=== PATIENT | male | born 1965 | race Caucasian/White ===

== ENCOUNTER 2018-12-07 19:35 | Observation (INO) ==
--- NOTE | 2018-12-07 19:45 | Emergency Department Note ---
Disposition Clinical Impression: Complicated UTI (urinary tract infection) Sepsis Qualifiers: Sepsis type: sepsis due to unspecified organism Qualified Code(s): A41.9 - Sepsis, unspecified organism Disposition: Admitted As Inpatient Condition: Fair Time of Disposition: 02:42 Fever HPI - General Stated Complaint: fever after surgery Time Seen by Provider: 12/07/18 19:44 Source: patient, family Mode of arrival: ambulatory Limitations: no limitations Nursing Notes Reviewed: Yes Vital Signs Reviewed: Yes - History of Present Illness HPI Narrative: 53-year-old male past medical history of diabetes with triple bypass performed at this facility 12 days ago recently released on Saturday states that he has been doing well at home with progression of his recuperation. Patient states that for the past 2 days that he has had dysuria with increased frequency dark colored urine, patient states that along with this he has noted fevers and chills with fevers up to 101.7, patient states that he has had some chest discomfort which has been associated with his cardiac bypass which has been improving each day since his surgery, patient denies any new or worsening symptoms. Patient denies abdominal pain nausea or vomiting, he denies dif ficulty with breathing but states he has noted decreased tidal volumes of respiration, patient has no new neck or back Pain numbness or paresthesias lightheaded dizziness or headache. Upon initial presentation H has midline surgical scar with laparotomy incisions consistent with triple bypass, wounds are healing well, there is no erythema regular date concerning for infection of the sites, patient is tachycardic however cardiac auscultation reveals no acute abnormalities, auscultation of the lungs do not reveal any abnormalities, patient abdomen is nontender nondistended, pulse motor are intact in the 4 extremities. Pt Subjective Complaint: fever, malaise, weakness, rigors Onset (ago): day(s) Maximum Temperature Reported: 101.7 F Temperature Source: oral Context: recent procedure/surgery Associated symptoms: Reports: chills, rigors, dyspnea, weight loss Improves with: nothing Worsens with: nothing Treatments prior to arrival fever: ibuprofen - Related Data Home Medications Medication Instructions Recorded Confirmed Dulaglutide [Trulicity] 0.75 mg SQ SA 08/23/17 12/07/18 Pioglitazone HCl [Actos] 30 mg PO DAILY 08/23/17 12/07/18 Pravastatin Sodium [Pravachol] 40 mg PO QPM 08/23/17 12/07/18 glipiZIDE [Glipizide ER] 10 mg PO BID 08/23/17 12/07/18 Aspirin [Lo-Dose Aspirin EC] 81 mg PO DAILY 05/15/18 12/07/18 Metformin HCl [Fortamet] 1,000 mg PO BID 11/25/18 12/07/18 Omeprazole Magnesium [Prilosec Otc] 20 mg PO DAILY 11/25/18 12/07/18 Oxycodone Myristate [Xtampza ER] 13.5 mg PO Q12H PRN 11/25/18 12/07/18 Previous Rx's Medication Instructions Recorded Metoprolol [Lopressor] 100 mg PO BID #60 tablet 12/01/18 Allergies Allergy/AdvReac Type Severity Reaction Status Date / Time Erythromycin Base Allergy Hives Verified 11/25/18 07:29 Penicillins [PCN] Allergy Hives Verified 11/25/18 07:29 Sulfa (Sulfonamide Allergy Hives Verified 11/25/18 07:29 Antibiotics) Review of Systems: *See History of Present Illness for more detail Constitutional: Admits: Chills. Denies: fever Cardiovascular: Denies: chest pain Respiratory: Admits to decreased tidal volumes respiration Denies: dyspnea, cough, hemoptysis Gastrointestinal: Denies: abdominal pain, nausea, vomiting, diarrhea, constipation, hematemesis, melena, hematochezia Genitourinary: Patient admits to increasing dysuria, frequency, discolored urine Denies: hematuria Musculoskeletal: Denies: back pain, neck pain Integumentary: Denies: rash Neurological: Admits: Weakness. Denies: headache, lightheadedness/dizziness, numbness, paresthesias, difficulty with ambulation. Endocrine: Admits: fatigue All systems ED: reviewed and negative except as stated. Review of Systems: As Per HPI Fever PMH - Past Medical History Medical history: Reports: non-contributory, diabetes, hyperlipidemia Surgical history: Reports: orthopedic, other Psychiatric history: Reports: no psych history - Social History Smoking Status: Current every day smoker Alcohol use: Reports: none Drug use: Reports: none Physical Exam Constitutional: No acute distress, [id number], engaged to conversation, speech is fluid, answers questions appropriately Neuro: GCS 15, no overt focal neurological deficits Head: Atraumatic, normocephalic Eyes: Pupils equal, round and reactive to light, no scleral icterus, no conjunctival injection Neck: Trachea midline without deviation. Anterior neck is supple without swelling. *Chest: Symmetric chest wall rise *Heart: Cardiac rhythm and rate are regular with S1 and S2 , no S3 or S4 appreciated, no murmurs, gallops, rubs, or clicks. *Lungs: Lungs are clear to auscultation bilaterally, without accessory muscle use or prolonged expiratory phase. No wheezes, rhonchi or stridor appreciated. Abdomen: Abdomen is flat, soft to palpation, normal bowel sounds. No abdominal bruit auscultated. Non-distended, non-rigid, no organomegaly, no ascites appreciated. No pulsatile mass, no tenderness or guarding to palpation in all four quadrants, no rebound Extremities: Normal capillary refill without evidence of pedal edema, joint swelling or erythema. Pulses/motor intact in all 4 extremities. Psychiatric exam: Patient displays a normal affect and mood for the environment. No overt signs of hallucination. Integumentary: warm, dry, intact, normal color. No rash, cyanosis, diaphoresis, erythema, or pallor - General Limitations: no limitations General appearance: alert, in no apparent distress Course Course Narrative: ED sepsis workup-likely source is UTI - Reevaluation(s) Reevaluation #1: Patient laboratory notable for elevated white count, UTI showed an urinalysis We will begin 1 g piggyback Rocephin at this time Patient with elevated troponin which is consistent with prior triple bypass. Otherwise unremarkable EKG, laboratory and imaging results. Time: 20:59 Vital Signs Temperature 100.0 F H 12/07/18 19:47 Pulse Rate 116 12/07/18 19:47 Respiratory Rate 22 12/07/18 19:47 Blood Pressure 111/77 12/07/18 19:47 O2 Sat by Pulse Oximetry 97 12/07/18 19:47 Temperature 98.9 F 12/07/18 23:18 Pulse Rate 104 12/07/18 23:20 Respiratory Rate 18 12/07/18 23:18 Blood Pressure 110/71 12/07/18 23:18 O2 Sat by Pulse Oximetry 97 12/07/18 23:18 Oxygen Delivery Oxygen Delivery Room Air Fever - MDM Narrative Medical decision making narrative: Patient will be admitted to hospitalist medicine service for further evaluation and management of urosepsis. We will trend troponin every 3 hour. Patient given 1 g Rocephin piggyback in ED for management of UTI. Patient states he has taken Rocephin before without issue states that he was told he had a penicillin allergy as a child and does not remember any adverse reaction. Patient verbalizes understanding and agreement with the above stated plan. - Lab Data Lab results reviewed: Yes I reviewed the patient's lab results. Result diagrams: 12/07/18 20:05 12/07/18 20:05 Lab Results 12/07/18 12/07/18 12/07/18 Range/Units 19:45 20:05 20:05 WBC 24.8 H (4.3-11.1) K/mcL RBC 3.25 L (4.19-5.50) M/mcL Hgb 10.5 L (12.9-16.9) g/dL Hct 32.6 L (37.5-50.1) % MCV 100.3 H (83.0-100.0) fL MCH 32.3 (28.0-33.3) pg MCHC 32.2 (31.6-35.5) g/dL RDW 12.5 (11.5-14.5) % Plt Count 513 H (140-400) K/mcL MPV 8.6 L (9.4-12.4) fL Immature Gran % 0.7 (0-4) % Seg Neutrophils % 82.3 % Lymphocytes % 9.9 % Monocytes % 5.7 % Eosinophils % 1.2 % Basophils % 0.2 % Neutrophils # 20.4 H (1.6-8.9) K/mcL Lymphocytes # 2.4 (0.6-4.6) K/mcL Monocytes # 1.4 H (0.0-1.3) K/mcL Eosinophils # 0.3 (0.0-0.6) K/mcL Basophils # 0.1 (0.0-0.2) K/mcL PT 13.0 H (9.4-12.1) Seconds INR 1.1 APTT 33.0 (26.0-36.0) Seconds Sodium (136-145) mEq/L Potassium (3.5-5.1) mEq/L Chloride (98-107) mEq/L Carbon Dioxide (23-29) mEq/L BUN (6-20) mg/dL Creatinine (0.70-1.30) mg/dL Est GFR ( Amer) (> 60) Est GFR (Non-Af Amer) (> 60) BUN/Creatinine Ratio (6-26) Glucose (70-105) mg/dL Calculated Osmolality (280-300) Lactic Acid (0.5-2.2) mmol/L Calcium (8.6-10.3) mg/dL Phosphorus (2.7-4.5) mg/dL Magnesium (1.6-2.6) mg/dL Total Bilirubin (0.3-1.0) mg/dL Direct Bilirubin (0.0-0.2) mg/dL Indirect Bilirubin (0.0-1.2) mg/dL AST (13-39) Units/L ALT (7-52) Units/L Alkaline Phosphatase (34-104) Units/L Troponin I (< 0.04) ng/mL Serum Total Protein (6.4-8.9) g/dL Albumin (3.5-5.7) g/dL Globulin (2.4-3.5) g/dL Albumin/Globulin Ratio (1.1-2.2) Lipase (11-82) Units/L Urine Color Yellow (Yellow) Urine Clarity Cloudy A (Clear) Urine pH 7.0 (5.0-8.0) pH Units Ur Specific [place] < 1.005 L (1.010-1.025) Urine Protein 30 H (Neg-Trace) mg/dL Urine Glucose (UA) Normal (Normal) mg/dL Urine Ketones Negative (Negative) mg/dL Urine Blood Small H (Negative) Urine Nitrite Positive A (Negative) Urine Bilirubin Negative (Negative) Urine Urobilinogen Normal (Normal) mg/dL Ur Leukocyte Esterase Large H (Negative) Urine Microscopic RBC 5-15 H (0-3) per hpf Urine Microscopic WBC TNTC H (0-3) per hpf Ur Squamous Epith Cells Moderate H (None-Few) per lpf Urine Bacteria Many H (None-Few) per hpf Hyaline Casts None Seen (None-Few) per lpf Ur Culture Indicated? YES A (NO) 12/07/18 12/07/18 Range/Units 20:05 20:05 WBC (4.3-11.1) K/mcL RBC (4.19-5.50) M/mcL Hgb (12.9-16.9) g/dL Hct (37.5-50.1) % MCV (83.0-100.0) fL MCH (28.0-33.3) pg MCHC (31.6-35.5) g/dL RDW (11.5-14.5) % Plt Count (140-400) K/mcL MPV (9.4-12.4) fL Immature Gran % (0-4) % Seg Neutrophils % % Lymphocytes % % Monocytes % % Eosinophils % % Basophils % % Neutrophils # (1.6-8.9) K/mcL Lymphocytes # (0.6-4.6) K/mcL Monocytes # (0.0-1.3) K/mcL Eosinophils # (0.0-0.6) K/mcL Basophils # (0.0-0.2) K/mcL PT (9.4-12.1) Seconds INR APTT (26.0-36.0) Seconds Sodium 135 L (136-145) mEq/L Potassium 4.1 (3.5-5.1) mEq/L Chloride 100 (98-107) mEq/L Carbon Dioxide 25 (23-29) mEq/L BUN 15 (6-20) mg/dL Creatinine 0.92 (0.70-1.30) mg/dL Est GFR ( Amer) > 60 (> 60) Est GFR (Non-Af Amer) > 60 (> 60) BUN/Creatinine Ratio 16 (6-26) Glucose 134 H (70-105) mg/dL Calculated Osmolality 283 (280-300) Lactic Acid 1.7 (0.5-2.2) mmol/L Calcium 9.7 (8.6-10.3) mg/dL Phosphorus 2.8 (2.7-4.5) mg/dL Magnesium 1.5 L (1.6-2.6) mg/dL Total Bilirubin 0.4 (0.3-1.0) mg/dL Direct Bilirubin 0.1 (0.0-0.2) mg/dL Indirect Bilirubin 0.3 (0.0-1.2) mg/dL AST 11 L (13-39) Units/L ALT 19 (7-52) Units/L Alkaline Phosphatase 76 (34-104) Units/L Troponin I 0.05 H* (< 0.04) ng/mL Serum Total Protein 7.1 (6.4-8.9) g/dL Albumin 4.2 (3.5-5.7) g/dL Globulin 2.9 (2.4-3.5) g/dL Albumin/Globulin Ratio 1.4 (1.1-2.2) Lipase 22 (11-82) Units/L Urine Color (Yellow) Urine Clarity (Clear) Urine pH (5.0-8.0) pH Units Ur Specific [place] (1.010-1.025) Urine Protein (Neg-Trace) mg/dL Urine Glucose (UA) (Normal) mg/dL Urine Ketones (Negative) mg/dL Urine Blood (Negative) Urine Nitrite (Negative) Urine Bilirubin (Negative) Urine Urobilinogen (Normal) mg/dL Ur Leukocyte Esterase (Negative) Urine Microscopic RBC (0-3) per hpf Urine Microscopic WBC (0-3) per hpf Ur Squamous Epith Cells (None-Few) per lpf Urine Bacteria (None-Few) per hpf Hyaline Casts (None-Few) per lpf Ur Culture Indicated? (NO) - Radiology Data Radiology results reviewed: Yes I reviewed the patient's radiology results. Chest X-Ray 12/07/18 19:58 IMPRESSION: Areas of atelectasis in both lungs. D/ / Jimmy Corado MD / Jimmy Corado MD Interpreting Provider: Jimmy Corado MD - EKG Data EKG attestation: Yes I reviewed and interpreted this EKG. EKG results narrative: Patient's EKG shows a sinus tachycardia with a computer evaluated heart rate of 118 bpm, ND interval of 138 ms, QRS duration of 1 ms, QT/QTc interval of 300/41 ms respectively. There are no significant ST segment elevations, depressions, pathologic Q waves, abnormal T-wave inversions are noted in lead aVL and V2 which appear isolated to these leads, this EKG that was performed today is generally consistent with prior EKG that was performed on 11/25/2018.
[2018-12-07 19:57] LABS: Bilirubin,Urine Negative (Negative); Blood,Urine Small (Negative); Clarity,Urine Cloudy (Clear); Color,Urine Yellow (Yellow); Glucose,Urine (UA) Normal (Normal); Ketones,Urine Negative (Negative); Leukocyte Esterase,Urine Large (Negative); Nitrite,Urine Positive (Negative); Protein,Urine 30 mg/dL (Neg-Trace); Specific Gravity,Urine < 1.005 (1.010-1.025); Urobilinogen,Urine Normal (Normal)
[2018-12-07 19:59] LABS: Bacteria,Urine Many per hpf (None-Few); Hyaline Casts,Urine None Seen per lpf (None-Few); Squamous Epithelial Cell,Urine Moderate per lpf (None-Few); WBC,Urine TNTC per hpf (0-3)
[2018-12-07] MEDS: 0.9 % Sodium Chloride 1,000 ML IVC SCH ×2 (20:10→20:12)
[2018-12-07 20:20] LABS: Basophils # 0.1 K/mcL (0.0-0.2); Basophils % 0.2 %; Eosinophils # 0.3 K/mcL (0.0-0.6); Eosinophils % 1.2 %; Hematocrit 32.6 % (37.5-50.1); Hemoglobin 10.5 g/dL (12.9-16.9); Immature Granulocytes % 0.7 % (0-4); Lymphocytes # 2.4 K/mcL (0.6-4.6); Lymphocytes % 9.9 %; Mean Corpuscular HGB Conc 32.2 g/dL (31.6-35.5); Mean Corpuscular Hemoglobin 32.3 pg (28.0-33.3); Mean Corpuscular Volume 100.3 fL (83.0-100.0); Mean Platelet Volume 8.6 fL (9.4-12.4); Monocytes # 1.4 K/mcL (0.0-1.3); Monocytes % 5.7 %; Neutrophils # 20.4 K/mcL (1.6-8.9); Platelet Count 513 K/mcL (140-400); Red Blood Count 3.25 M/mcL (4.19-5.50); Red Cell Distribution Width 12.5 % (11.5-14.5); Segmented Neutrophils % 82.3 %; White Blood Count 24.8 K/mcL (4.3-11.1)
[2018-12-07 20:29] LABS: INR 1.1
[2018-12-07 20:42] LABS: Alanine Aminotransferase 19 Units/L (7-52); Albumin 4.2 g/dL (3.5-5.7); Albumin/Globulin Ratio 1.4 (1.1-2.2); Alkaline Phosphatase 76 Units/L (34-104); Aspartate Amino Transferase 11 Units/L (13-39); Bilirubin,Direct 0.1 mg/dL (0.0-0.2); Bilirubin,Indirect 0.3 mg/dL (0.0-1.2); Bilirubin,Total 0.4 mg/dL (0.3-1.0); Blood Urea Nitrogen 15 mg/dL (6-20); Calcium 9.7 mg/dL (8.6-10.3); Carbon Dioxide 25 mEq/L (23-29); Chloride 100 mEq/L (98-107); Globulin 2.9 g/dL (2.4-3.5); Glucose 134 mg/dL (70-105); Lipase 22 Units/L (11-82); Magnesium 1.5 mg/dL (1.6-2.6); Osmolality,Calculated 283 (280-300); Phosphorous 2.8 mg/dL (2.7-4.5); Potassium 4.1 mEq/L (3.5-5.1); Sodium 135 mEq/L (136-145); Total Protein 7.1 g/dL (6.4-8.9)
[2018-12-07 20:45] LABS: Troponin I 0.05 ng/mL (< 0.04)
[2018-12-07] MEDS ORDERED: cefTRIAXone 1,000 MG in 0.9 % Sodium Chloride Mini Bag 100 ML IVPB ONE (20:57)
[2018-12-07 21:45] LABS: BUN/Creatinine Ratio 16 (6-26); eGFR For African Americans > 60 (> 60); eGFR For Non-African Americans > 60 (> 60)
[2018-12-07] MEDS ORDERED: Naloxone 0.4 MG/ML INJ IVP PRN (22:02)
[2018-12-07] MEDS ORDERED: Acetaminophen 325 MG TABLET PO PRN (22:02)
[2018-12-07] MEDS ORDERED: *HR* OxyCODONE/APAP 10/325 TABLET PO PRN (22:06)
[2018-12-07] MEDS ORDERED: OXYCODONE MYRISTATE 13.5 MG PO PRN (22:06)
--- NOTE | 2018-12-07 22:09 | Internal Med History&Physical ---
Date of Encounter: 12/07/18 Time of Encounter: 22:07 Internal Medicine - H&P: HPI Chief complaint: Dysuria History of present illness: Mr. Quintanilla is a 53 year old male with a past medical history of diabetes, hyperlipidemia, coronary artery disease status post recent CABG 12 days ago and recently discharged on Saturday who presented to the ED with a 2 day history of dy suria with increased frequency and dark colored urine. Patient patient reporting that he recently had his Lopez catheter removed. Patient has noted fevers of up to 101.7 as well as chills. On arrival found to be hemodynamically stable with a heart rate of 116. 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 Laboratory workup for a leukocytosis of 24.8, anemia which appears to be stable, and a troponin of 0.05. UA showing positive nitrites and leukocyte esterase. A she was given 1 L of fluids in the ED. Blood and urine cultures were obtained. Patient was started on ceftriaxone. We will admit for UTI with sepsis. Past Med Surg Social Fam HX - Past Medical History Medical history: diabetes, hyperlipidemia Additional medical history: lumbar stenosis. CAD Psychiatric history: no psych history - Past Surgical History Surgical History: orthopedic, other Additional surgical history: shoulder x2, wrist - Social History Smoking Status: Never smoker Smokeless Tobacco Status: No Alcohol use: none Drug use: none Internal Medicine - H&P: Meds Dulaglutide [Trulicity] 0.75 mg SQ SA 08/23/17 [History] Pioglitazone HCl [Actos] 30 mg PO DAILY 08/23/17 [History] Pravastatin Sodium [Pravachol] 40 mg PO QPM 08/23/17 [History] glipiZIDE [Glipizide ER] 10 mg PO BID 08/23/17 [History] Aspirin [Lo-Dose Aspirin EC] 81 mg PO DAILY 05/15/18 [History] Metformin HCl [Fortamet] 1,000 mg PO BID 11/25/18 [History] Omeprazole Magnesium [Prilosec Otc] 20 mg PO DAILY 11/25/18 [History] Oxycodone Myristate [Xtampza ER] 13.5 mg PO Q12H PRN 11/25/18 [History] Metoprolol [Lopressor] 100 mg PO BID #60 tablet 12/01/18 [Rx] Allergy/AdvReac Type Severity Reaction Status Date / Time Erythromycin Base Allergy Hives Verified 11/25/18 07:29 Penicillins [PCN] Allergy Hives Verified 11/25/18 07:29 Sulfa (Sulfonamide Allergy Hives Verified 11/25/18 07:29 Antibiotics) All Systems PM: A 10-system review of systems was performed and is negative for pertinent findings except as documented above in the HPI. - Constitutional Constitutional: no chills, no fever(s), no night sweats - EENT Eyes: no change in vision, no discharge, no pain, no photophobia Ears: no ear discharge, no ear pain, no tinnitus Nose, mouth and throat: no dysphagia, no nasal discharge, no neck pain, no sore throat - Cardiovascular Cardiovascular ROS IM: no chest pain, no diaphoresis, no dyspnea, no lightheadedness, no palpitations, no syncope - Respiratory Respiratory: no cough, no dyspnea, no wheezing, no excessive phlegm production - Gastrointestinal Gastrointestinal: no abdominal pain, no diarrhea, no hematemesis, no hematochezia, no melena, no nausea, no vomiting - Musculoskeletal Musculoskeletal ROS IM: no numbness, no tingling - Integumentary Integumentary IM: no rash, no unusual bruising - Neurological Neurological ROS: no confusion, no convulsions, no focal weakness, no numbness, no tingling, no tremor(s) - Hematologic/Lymphatic Hematologic/Lymphatic: no easy bruising - Constitutional Vitals: Temp Pulse Resp BP Pulse Ox 100.0 F H 105 16 117/72 100 12/07/18 19:47 12/07/18 20:32 12/07/18 20:32 12/07/18 20:32 12/07/18 20:32 Exam: General: Alert and oriented Skin:Normal color, no rash, no lesions. HEENT:EOM, pupils equal, round and reactive. Cardiovascular:Normal S1 & S2, no rubs, murmurs or gallops. No JVD. Pulse regular. Lungs:Normal breath sounds, no wheezes or crackles. Abdomen:Soft, non-tender, no rigidity. Extremities:No deformity, no edema or tenderness, no joint swelling or clubbing. Neurological:Normal cognition and motor skills. Pulses:Carotid and radial pulses normal +2. Rest of the physical exam is non contributory Internal Med - H&P Results - Labs CBC & Chem 7: 12/08/18 04:02 12/08/18 04:02 Labs: Short CBC 12/07/18 Range/Units 20:05 WBC 24.8 H (4.3-11.1) K/mcL Hgb 10.5 L (12.9-16.9) g/dL Hct 32.6 L (37.5-50.1) % Plt Count 513 H (140-400) K/mcL Neutrophils # 20.4 H (1.6-8.9) K/mcL BMP 12/07/18 20:05 Sodium 135 L Potassium 4.1 Chloride 100 Carbon Dioxide 25 BUN 15 Creatinine 0.92 Glucose 134 H Calcium 9.7 Cardiac Enzymes 12/07/18 Range/Units 20:05 Troponin I 0.05 H* (< 0.04) ng/mL Liver Function 12/07/18 Range/Units 20:05 Total Bilirubin 0.4 (0.3-1.0) mg/dL Direct Bilirubin 0.1 (0.0-0.2) mg/dL AST 11 L (13-39) Units/L ALT 19 (7-52) Units/L Alkaline Phosphatase 76 (34-104) Units/L Albumin 4.2 (3.5-5.7) g/dL Urine 12/07/18 Range/Units 19:45 Urine Color Yellow (Yellow) Urine Clarity Cloudy A (Clear) Urine pH 7.0 (5.0-8.0) pH Units Ur Specific [place] < 1.005 L (1.010-1.025) Urine Protein 30 H (Neg-Trace) mg/dL Urine Glucose (UA) Normal (Normal) mg/dL - Impressions ITS Impressions Chest X-Ray 12/07/18 19:58 IMPRESSION: Areas of atelectasis in both lungs. D/ / Jimmy Corado MD / Jimmy Corado MD Interpreting Provider: Jimmy Corado MD - Assessment and Plan (1) Complicated UTI (urinary tract infection) Current Visit: Yes Status: Acute Assessment and plan: Patient presenting with symptoms of increased frequency, dysuria and dark colored urine for the past 2 days. Patient recently discharged earlier this week. During hospitalization had Lopez catheter in place which was removed prior to discharge. UA strongly suggestive of UTI. Patient has evidence of sepsis with fever, tachycardia and leukocytosis. -Continue antibiotics with IV ceftriaxone -Follow up urine and blood cultures (2) Coronary artery disease Current Visit: No Status: Acute Assessment and plan: History [place] [id number]. Patient reporting some chest pain which is pleuritic in nature. Otherwise states he has been having an uneventful recovery after surgery. -Continue aspirin, statin, beta caity. Qualifiers: Associated angina: angina presence unspecified Qualified Code(s): I25.10 - Atherosclerotic heart disease of [place] coronary artery without angina pectoris (3) Diabetes mellitus, insulin dependent (IDDM), controlled Current Visit: No Status: Acute Assessment and plan: History of [id number] type 2 diabetes. -We will place patient on sliding scale plus basal insulin with blood glucose checks. (4) Sepsis Current Visit: Yes Status: Acute Assessment and plan: Patient presenting with fever, tachycardia and leukocytosis with strong susp icion for cystitis. Lactic acid within normal limits. Patient received 1 L fluid bolus in the ED and was started on ceftriaxone. -Continue IV antibiotics -Continue fluid support -Follow-up urine and blood cultures. Qualifiers: Sepsis type: sepsis due to unspecified organism Qualified Code(s): A41.9 - Sepsis, unspecified organism (5) Elevated troponin Current Visit: Yes Status: Acute Assessment and plan: Patient presenting with an elevated troponin of 0.05. Patient is reporting some chest pain however it appears pleuritic in nature which may be suspected after recent bypass surgery. EKG showed normal sinus rhythm with T-wave inversions noted in leads 1, aVL, V2. Patient's troponin and EKG changes may be postoperative changes associated with recent CABG. -We will trend troponin -Continue patient on aspirin, statin and beta caity -Will send EKG via [employer] to on-call bank courier to review. Awaiting feedback. (6) DVT prophylaxis Current Visit: Yes Status: Acute - Time Spent With Patient Total time spent is greater than 50% in coordination of care (as documented) at patient's floor/unit and/or counseling patient:
--- NOTE | 2018-12-07 22:13 | Emergency Department Note ---
Disposition Clinical Impression: Complicated UTI (urinary tract infection) Sepsis Qualifiers: Sepsis type: sepsis due to unspecified organism Qualified Code(s): A41.9 - Sepsis, unspecified organism Disposition: Admitted As Inpatient Condition: Fair Time of Disposition: 22:11 General Adult HPI - General Chief complaint: ED Fever Stated complaint: fever after surgery Time Seen by Provider: 12/07/18 19:44 Source: patient, family Mode of arrival: ambulatory Limitations: no limitations Nursing Notes Reviewed: Yes Vital Signs Reviewed: Yes - History of Present Illness Pain Scale: 3 - Related Data Home Medications Medication Instructions Recorded Confirmed Dulaglutide [Trulicity] 0.75 mg SQ SA 08/23/17 12/07/18 Pioglitazone HCl [Actos] 30 mg PO DAILY 08/23/17 12/07/18 Pravastatin Sodium [Pravachol] 40 mg PO QPM 08/23/17 12/07/18 glipiZIDE [Glipizide ER] 10 mg PO BID 08/23/17 12/07/18 Aspirin [Lo-Dose Aspirin EC] 81 mg PO DAILY 05/15/18 12/07/18 Metformin HCl [Fortamet] 1,000 mg PO BID 11/25/18 12/07/18 Omeprazole Magnesium [Prilosec Otc] 20 mg PO DAILY 11/25/18 12/07/18 Oxycodone Myristate [Xtampza ER] 13.5 mg PO Q12H PRN 11/25/18 12/07/18 Previous Rx's Medication Instructions Recorded Metoprolol [Lopressor] 100 mg PO BID #60 tablet 12/01/18 OxyCODONE/APAP 10/325 [Percocet 1 each PO Q6HR PRN 7 Days #20 12/01/18 10/325 MG] tablet Allergies Allergy/AdvReac Type Severity Reaction Status Date / Time Erythromycin Base Allergy Hives Verified 11/25/18 07:29 Penicillins [PCN] Allergy Hives Verified 11/25/18 07:29 Sulfa (Sulfonamide Allergy Hives Verified 11/25/18 07:29 Antibiotics) Past Medical History - Past Medical History Medical history: Reports: diabetes, hyperlipidemia Surgical history: Reports: orthopedic, other Psychiatric history: Reports: no psych history - Social History Smoking Status: Never smoker Smokeless Tobacco Status: No Alcohol use: Reports: none Drug use: Reports: none Physical Exam - General Limitations: no limitations General appearance: alert, in no apparent distress Course Vital Signs Temperature 100.0 F H 12/07/18 19:47 Pulse Rate 116 12/07/18 19:47 Respiratory Rate 22 12/07/18 19:47 Blood Pressure 111/77 12/07/18 19:47 O2 Sat by Pulse Oximetry 97 12/07/18 19:47 Temperature 98.4 F 12/07/18 22:31 Pulse Rate 105 12/07/18 20:32 Respiratory Rate 19 12/07/18 22:31 Blood Pressure 98/67 12/07/18 22:31 O2 Sat by Pulse Oximetry 100 12/07/18 20:32 Oxygen Delivery Oxygen Delivery Room Air Medical Decision Making - Medical Records Medical records reviewed: Yes I reviewed the patient's medical records. - Lab Data Lab results reviewed: Yes I reviewed the patient's lab results. Result diagrams: 12/07/18 20:05 12/07/18 20:05 Lab Results 12/07/18 12/07/18 12/07/18 Range/Units 19:45 20:05 20:05 WBC 24.8 H (4.3-11.1) K/mcL RBC 3.25 L (4.19-5.50) M/mcL Hgb 10.5 L (12.9-16.9) g/dL Hct 32.6 L (37.5-50.1) % MCV 100.3 H (83.0-100.0) fL MCH 32.3 (28.0-33.3) pg MCHC 32.2 (31.6-35.5) g/dL RDW 12.5 (11.5-14.5) % Plt Count 513 H (140-400) K/mcL MPV 8.6 L (9.4-12.4) fL Immature Gran % 0.7 (0-4) % Seg Neutrophils % 82.3 % Lymphocytes % 9.9 % Monocytes % 5.7 % Eosinophils % 1.2 % Basophils % 0.2 % Neutrophils # 20.4 H (1.6-8.9) K/mcL Lymphocytes # 2.4 (0.6-4.6) K/mcL Monocytes # 1.4 H (0.0-1.3) K/mcL Eosinophils # 0.3 (0.0-0.6) K/mcL Basophils # 0.1 (0.0-0.2) K/mcL PT 13.0 H (9.4-12.1) Seconds INR 1.1 APTT 33.0 (26.0-36.0) Seconds Sodium (136-145) mEq/L Potassium (3.5-5.1) mEq/L Chloride (98-107) mEq/L Carbon Dioxide (23-29) mEq/L BUN (6-20) mg/dL Creatinine (0.70-1.30) mg/dL Est GFR ( Amer) (> 60) Est GFR (Non-Af Amer) (> 60) BUN/Creatinine Ratio (6-26) Glucose (70-105) mg/dL Calculated Osmolality (280-300) Lactic Acid (0.5-2.2) mmol/L Calcium (8.6-10.3) mg/dL Phosphorus (2.7-4.5) mg/dL Magnesium (1.6-2.6) mg/dL Total Bilirubin (0.3-1.0) mg/dL Direct Bilirubin (0.0-0.2) mg/dL Indirect Bilirubin (0.0-1.2) mg/dL AST (13-39) Units/L ALT (7-52) Units/L Alkaline Phosphatase (34-104) Units/L Troponin I (< 0.04) ng/mL Serum Total Protein (6.4-8.9) g/dL Albumin (3.5-5.7) g/dL Globulin (2.4-3.5) g/dL Albumin/Globulin Ratio (1.1-2.2) Lipase (11-82) Units/L Urine Color Yellow (Yellow) Urine Clarity Cloudy A (Clear) Urine pH 7.0 (5.0-8.0) pH Units Ur Specific [place] < 1.005 L (1.010-1.025) Urine Protein 30 H (Neg-Trace) mg/dL Urine Glucose (UA) Normal (Normal) mg/dL Urine Ketones Negative (Negative) mg/dL Urine Blood Small H (Negative) Urine Nitrite Positive A (Negative) Urine Bilirubin Negative (Negative) Urine Urobilinogen Normal (Normal) mg/dL Ur Leukocyte Esterase Large H (Negative) Urine Microscopic RBC 5-15 H (0-3) per hpf Urine Microscopic WBC TNTC H (0-3) per hpf Ur Squamous Epith Cells Moderate H (None-Few) per lpf Urine Bacteria Many H (None-Few) per hpf Hyaline Casts None Seen (None-Few) per lpf Ur Culture Indicated? YES A (NO) 12/07/18 12/07/18 Range/Units 20:05 20:05 WBC (4.3-11.1) K/mcL RBC (4.19-5.50) M/mcL Hgb (12.9-16.9) g/dL Hct (37.5-50.1) % MCV (83.0-100.0) fL MCH (28.0-33.3) pg MCHC (31.6-35.5) g/dL RDW (11.5-14.5) % Plt Count (140-400) K/mcL MPV (9.4-12.4) fL Immature Gran % (0-4) % Seg Neutrophils % % Lymphocytes % % Monocytes % % Eosinophils % % Basophils % % Neutrophils # (1.6-8.9) K/mcL Lymphocytes # (0.6-4.6) K/mcL Monocytes # (0.0-1.3) K/mcL Eosinophils # (0.0-0.6) K/mcL Basophils # (0.0-0.2) K/mcL PT (9.4-12.1) Seconds INR APTT (26.0-36.0) Seconds Sodium 135 L (136-145) mEq/L Potassium 4.1 (3.5-5.1) mEq/L Chloride 100 (98-107) mEq/L Carbon Dioxide 25 (23-29) mEq/L BUN 15 (6-20) mg/dL Creatinine 0.92 (0.70-1.30) mg/dL Est GFR ( Amer) > 60 (> 60) Est GFR (Non-Af Amer) > 60 (> 60) BUN/Creatinine Ratio 16 (6-26) Glucose 134 H (70-105) mg/dL Calculated Osmolality 283 (280-300) Lactic Acid 1.7 (0.5-2.2) mmol/L Calcium 9.7 (8.6-10.3) mg/dL Phosphorus 2.8 (2.7-4.5) mg/dL Magnesium 1.5 L (1.6-2.6) mg/dL Total Bilirubin 0.4 (0.3-1.0) mg/dL Direct Bilirubin 0.1 (0.0-0.2) mg/dL Indirect Bilirubin 0.3 (0.0-1.2) mg/dL AST 11 L (13-39) Units/L ALT 19 (7-52) Units/L Alkaline Phosphatase 76 (34-104) Units/L Troponin I 0.05 H* (< 0.04) ng/mL Serum Total Protein 7.1 (6.4-8.9) g/dL Albumin 4.2 (3.5-5.7) g/dL Globulin 2.9 (2.4-3.5) g/dL Albumin/Globulin Ratio 1.4 (1.1-2.2) Lipase 22 (11-82) Units/L Urine Color (Yellow) Urine Clarity (Clear) Urine pH (5.0-8.0) pH Units Ur Specific [place] (1.010-1.025) Urine Protein (Neg-Trace) mg/dL Urine Glucose (UA) (Normal) mg/dL Urine Ketones (Negative) mg/dL Urine Blood (Negative) Urine Nitrite (Negative) Urine Bilirubin (Negative) Urine Urobilinogen (Normal) mg/dL Ur Leukocyte Esterase (Negative) Urine Microscopic RBC (0-3) per hpf Urine Microscopic WBC (0-3) per hpf Ur Squamous Epith Cells (None-Few) per lpf Urine Bacteria (None-Few) per hpf Hyaline Casts (None-Few) per lpf Ur Culture Indicated? (NO) - Radiology Data Radiology results reviewed: Yes I reviewed the patient's radiology results. - EKG Data EKG #1 EKG attestation: Yes I reviewed and interpreted this EKG. EKG results narrative: EKG showed sinus tachycardia with ventricular rate of 118. T-wave inversion in lead [address]VL[address] No significant ST segment elevation or depression. No ectopy. Critical Care Time Critical Care Time: Yes Total Critical Care Time: 35 Attestation: Critical care performed: Time is exclusive of separately billable procedures. Time includes: direct patient care, patient reassessment, coordination of patient care, interpretation of data (laboratory data, radiology data, and respiratory data), review of patient's medical records, medical consultation and documentation of patient care. Procedures included in critical care time: Procedures excluded from critical care time: Attestation Statement - Attestation Attestation: I, Jonathan Magallanes MD, personally evaluated this patient and discussed their management with the resident physician. I reviewed the resident's note and agree with the documented findings, medical decision making, and plan of care. I reviewed the residents documentation and agree with the residents assessment and plan of care. I have personally had face to face time with the patient. I personally supervised and was present for the mathur/critical portions of the following procedures completed by the resident: EKG interpretation. 53-year-old male who is 12 days status post CABG presents to the emergency department with a complaint of chills and fever for the past 2 days. Only other symptoms are some dysuria and increased urinary frequency. No flank pain. No abdominal pain. No increased chest pain. No cough or congestion. Patient did have a Lopez when he was in the hospital for his surgery. On examination patient is a well-developed well-nourished male in no acute distress. He is alert and oriented 3. There is no cyanosis. Patient is mildly diaphoretic. Breath sounds are clear and equal bilaterally. Heart regu lar with a moderate tachycardia. Abdomen soft and nontender with normal bowel sounds. No CVA tenderness. No pedal edema. Labs reviewed. WBC 24. UTI with TNTC WBCs. Chest x-ray showed some bilateral atelectasis. EKG showed sinus tachycardia with ventricular rate of 118. T-wave inversion in lead [address] aVL. No significant ST segment elevation or depression. No ectopy. Blood cultures obtained. Antibiotics initiated. The hospitalist, Dr. Chamberlain, was consulted and accepted admission of the patient.
[2018-12-07] MEDS ORDERED: 0.9 % Sodium Chloride 1,000 ML IVC SCH (22:15)
[2018-12-08 04:19] LABS: Basophils % 0.2 %; Eosinophils % 1.1 %; Hemoglobin 9.4 g/dL (12.9-16.9); Immature Granulocytes % 0.7 % (0-4); Lymphocytes % 11.4 %; Mean Platelet Volume 8.8 fL (9.4-12.4); Red Cell Distribution Width 12.5 % (11.5-14.5)
[2018-12-08 04:20] LABS: Eosinophils # 0.3 K/mcL (0.0-0.6); Hematocrit 29.1 % (37.5-50.1); Mean Corpuscular HGB Conc 32.3 g/dL (31.6-35.5); Mean Corpuscular Hemoglobin 32.5 pg (28.0-33.3); Mean Corpuscular Volume 100.7 fL (83.0-100.0); Monocytes # 1.6 K/mcL (0.0-1.3); Monocytes % 6.2 %; Neutrophils # 20.9 K/mcL (1.6-8.9); Platelet Count 472 K/mcL (140-400); Red Blood Count 2.89 M/mcL (4.19-5.50); Segmented Neutrophils % 80.4 %
[2018-12-08 04:21] LABS: Basophils # 0.1 K/mcL (0.0-0.2)
[2018-12-08 04:41] LABS: Alanine Aminotransferase 16 Units/L (7-52); Albumin 3.7 g/dL (3.5-5.7); Albumin/Globulin Ratio 1.4 (1.1-2.2); Alkaline Phosphatase 65 Units/L (34-104); Aspartate Amino Transferase 11 Units/L (13-39); BUN/Creatinine Ratio 15 (6-26); Bilirubin,Total 0.7 mg/dL (0.3-1.0); Blood Urea Nitrogen 12 mg/dL (6-20); Carbon Dioxide 25 mEq/L (23-29); Chloride 105 mEq/L (98-107); Globulin 2.7 g/dL (2.4-3.5); Glucose 104 mg/dL (70-105); Osmolality,Calculated 286 (280-300); Potassium 4.1 mEq/L (3.5-5.1); Sodium 138 mEq/L (136-145); Total Protein 6.4 g/dL (6.4-8.9); eGFR For African Americans > 60 (> 60); eGFR For Non-African Americans > 60 (> 60)
[2018-12-08 04:45] LABS: Platelet Estimate Normal (Normal)
[2018-12-08] MEDS: *HR* Heparin 5,000 UNIT/ML VIAL SQ SCH ×3 (06:34→19:59)
[2018-12-08] MEDS: Aspirin Enteric Coated 81 MG Tablet PO SCH (08:01)
--- NOTE | 2018-12-08 10:44 | Electrocardiograph Report ---
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
--- NOTE | 2018-12-08 11:19 | Internal Med Progress Note ---
Hospitalist Progress Note - Encounter Date of Encounter: 12/08/18 Time of Encounter: 08:20 - Subjective Interval History: patient was seen and examined at bedside. reports that his dysuria has improved. denies chest pain ( except pain that he has from recent CABG procedure) has had no nausea or vomiting. denies orthopnea or PND. - Exam Vitals: Temp Pulse Resp BP Pulse Ox 99.5 F 102 18 109/74 95 12/08/18 11:12/08/18 11:12/08/18 11:12/08/18 11:12/08/18 11:09 Exam: General: Patient is alert, oriented, no acute distress, speaks in full sentences. Head: atraumatic, normocephalic, Eye: normal appearance, PERRL, no scleral icterus, no conjunctival injection ENT: mucous membranes moist, normal external ear exam Neck: normal inspection, trachea midline, full ROM, no carotid bruits Chest: normal inspection, symmetric chest rise, CABG scar is well healed, no dischage or bleeding, has minimal ecchymosis on the chest from operation. Respiratory: Good respiratory effort. Bilateral breath sounds are clear without wheezing, crackles, or rhonchi. Cardiovascular: tachycardic s1 and s2 No clicks, rubs, gallops, or murmors. Abdomen: Bowel sounds present normoactive x-4 quadrants. Abdomen is soft, nondistended. no Epigastric tenderness. No guarding or rebound. No organomegaly noted musculoskeletal: Spontaneously moving all extremities. no edema, no calf tenderness Skin: warm, dry, intact. Neuro: Alert and oriented x3, no focal deficit Psych: Patient's affect is normal - Assessment and Plan (1) Complicated UTI (urinary tract infection) Current Visit: Yes Status: Acute Assessment and Plan: Patient presenting with symptoms of increased frequency, dysuria and dark colored urine for the past 2 days. UA strongly suggestive of UTI. Patient has evidence of sepsis with fever, tachycardia and leukocytosis. Continue antibiotics with IV ceftriaxone Follow up urine and blood cultures (2) Sepsis Current Visit: Yes Status: Acute Assessment and Plan: Patient presenting with fever, tachycardia and leukocytosis with UA positive. Lactic acid within normal limits. Continue IV antibiotics Continue fluid support- watch for overload Follow-up urine and blood cultures. (3) Elevated troponin Current Visit: Yes Status: Acute Assessment and Plan: Patient presenting with an elevated troponin of 0.05. Patient is reporting some chest pain however it appears pleuritic in nature which may be suspected after recent bypass surgery. EKG showed normal sinus rhythm with T-wave inversions noted in leads 1, aVL, V2. Patient's troponin and EKG changes may be postoperative changes associated with recent CABG in addition to sepsis and supply vs demand mismatch troponin has trended flat. Continue patient on aspirin, statin and beta caity night team had discussed EKG findings with oncall tailman. currently chest pain free will request CT surgery follow up. CXR: IMPRESSION: Areas of atelectasis in both lungs. (4) Coronary artery disease Current Visit: No Status: Acute Assessment and Plan: History [place] [id number]. Patient reporting some chest pain which is pleuritic in nature. Otherwise states he has been having an uneventful recovery after surgery. Continue aspirin, statin, beta caity Ct surgery follow up while in patient (5) Diabetes mellitus, insulin dependent (IDDM), controlled Current Visit: No Status: Acute Assessment and Plan: History of [id number] type 2 diabetes. insulin sliding scale adjust as per fingersticks (6) DVT prophylaxis Current Visit: Yes Status: Acute Assessment and Plan: heparin sc - Time Spent with Patient Total time spent is greater than 50% in coordination of care (as documented) at patient's floor/unit and/or counseling patient: Internal Medicine: Result - Labs CBC & Chem 7: 12/08/18 04:02 12/08/18 04:02 Labs: Short CBC 12/07/18 12/08/18 Range/Units 20:05 04:02 WBC 24.8 H 26.0 H (4.3-11.1) K/mcL Hgb 10.5 L 9.4 L (12.9-16.9) g/dL Hct 32.6 L 29.1 L (37.5-50.1) % Plt Count 513 H 472 H (140-400) K/mcL Neutrophils # 20.4 H 20.9 H (1.6-8.9) K/mcL BMP 12/07/18 12/08/18 20:05 04:02 Sodium 135 L 138 Potassium 4.1 4.1 Chloride 100 105 Carbon Dioxide 25 25 BUN 15 12 Creatinine 0.92 0.82 Glucose 134 H 104 Calcium 9.7 9.0 Cardiac Enzymes 12/07/18 12/08/18 Range/Units 20:05 04:02 Troponin I 0.05 H* 0.06 H* (< 0.04) ng/mL Liver Function 12/07/18 12/08/18 Range/Units 20:05 04:02 Total Bilirubin 0.4 0.7 (0.3-1.0) mg/dL Direct Bilirubin 0.1 (0.0-0.2) mg/dL AST 11 L 11 L (13-39) Units/L ALT 19 16 (7-52) Units/L Alkaline Phosphatase 76 65 (34-104) Units/L Albumin 4.2 3.7 (3.5-5.7) g/dL Urine 12/07/18 Range/Units 19:45 Urine Color Yellow (Yellow) Urine Clarity Cloudy A (Clear) Urine pH 7.0 (5.0-8.0) pH Units Ur Specific [place] < 1.005 L (1.010-1.025) Urine Protein 30 H (Neg-Trace) mg/dL Urine Glucose (UA) Normal (Normal) mg/dL - ABG Interpretation ABG results: PT/INR, D-dimer PT 13.0 Seconds (9.4-12.1) H 12/07/18 20:05 - Impressions Impressions Chest X-Ray 12/07/18 19:58 IMPRESSION: Areas of atelectasis in both lungs. D/ / Jimmy Corado MD / Jimmy Corado MD Interpreting Provider: Jimmy Corado MD Consult Discharge Plan - Plan Referrals: Gutierrez Shrestha DO [Primary Care Provider] - (sent web request on 12-08-18 @ 2537) (2) Sepsis Qualifiers: Sepsis type: sepsis due to unspecified organism Qualified Code(s): A41.9 - Sepsis, unspecified organism (4) Coronary artery disease Qualifiers: Associated angina: angina presence unspecified Qualified Code(s): I25.10 - Atherosclerotic heart disease of [place] coronary artery without angina pectoris
[2018-12-08] MEDS: cefTRIAXone 1,000 MG in Water for inj. (sterile) 10 ML IVP SCH (12:27)
--- NOTE | 2018-12-08 15:05 | Infectious Disease Consult ---
Infectious Disease-Consult - Encounter Date/Time Date of Encounter: 12/08/18 Time of Encounter: 15:02 - Data of Consult Patient: new to practice Reason for consult: Sepsis, complicated UTI Consult date: 12/08/18 Requesting Physician: iXao Patino MD Primary Care Provider: Gutierrez Shrestha DO - [facility] HPI: Mr. Quintanilla is a 53-year-old male with a past medical history of CAD status post CABG 11/25/18, hyperlipidemia, diabetes. The patient was admitted to the hospital 12/07/18 for UTI and sepsis. We are, consulted 12/08/18 for further workup and treatment recommendations for complicated UTI and sepsis. Briefly, the patient is a 53-year-old male with a past medical history as stated above. The patient presented to the emergency department with complaints of dysuria, fever, and chills. Upon arrival to the ER, he had a low-grade temp of 100 and was tachycardic and tachypneic. He had a WBC of 24,000 with neutrophilic predominance. Renal function lactic acid were normal. Troponin was mildly elevated at 0.05. Urinalysis was positive for pyuria and the culture is pending. Chest x-ray showed bilateral atelectasis, but no consolidation. Blood cultures were obtained 2 sets are pending. He was started empirically on IV Rocephin and admitted to the hospital for further evaluation and treatment. Since admission, the patient has been afebrile. His WBC is a little bit worse this morning. He continues to have tachycardia. Currently, the patient is on IV Rocephin. We have been asked to evaluate and make further recommendations. During my exam today, the patient endorses a history as stated above. He tells me that before leaving the hospital after his surgery he had some painful urin ation which he thought was just related to his previous Lopez catheter. He states after discharge the dysuria and urinary frequency increased. He developed fevers with chills and rigors and generalized fatigue and malaise. He reports some mild pain at the surgical site, but otherwise denies chest pain. Denies shortness of breath or cough. Denies nausea, vomiting, diarrhea, or constipation. Denies abdominal or flank pain. States his appetite has been okay. Denies oral thrush or skin rashes. States his vein harvesting sites look good. The patient lives at home with his . 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 He smoked about a pack of cigarettes per day until his open heart surgery. Denies alcohol or illicit drug use. States he has 2 dogs at home. Denies recent travel. Denies any chronic infectious diseases. - ROS Review of Systems: All systems reviewed and no additional remarkable complaints except as stated. - Results CBC & Chem 7: 12/09/18 04:46 12/08/18 04:02 - Exam Vitals: Temp Pulse Resp BP Pulse Ox 99.5 F 102 18 109/74 95 12/08/18 11:09 12/08/18 11:09 12/08/18 11:09 12/08/18 11:09 12/08/18 11:09 Exam: Head: Atraumatic, normal inspection, normocephalic. Eye: EOMI, PERRLA, no scleral icterus noted. ENT: Mucous membranes moist. No odontogenic infection noted. Neck: Normal inspection, no meningismus. Respiratory: Clear to auscultation. No rales, respiratory distress, rhonchi, or wheezes noted. Cardiovascular: Regularrhythm, tachycardic. S1 and S2 audible. No murmurs, rubs, or gallops. GI: Soft, nondistended, normal bowel sounds. Extremities: No joint swelling, pedal edema, or tenderness noted. Vein harvesting sites open to air without erythema. Well healed. No drainage. Back: Normal inspection. No vertebral tenderness noted. No CVA tenderness noted. Neurological: Alert, oriented 3, no focal deficits. Psychiatric: normal affect, normal mood. Skin: Dry, intact, warm. Normal color. No rashes. Midsternal incision open to air with Steri-Strips intact. No erythema, warmth, tenderness, or drainage noted. Chest tube sites without abnormality. Dulaglutide [Trulicity] 0.75 mg SQ WE 08/23/17 [History] Pioglitazone HCl [Actos] 30 mg PO DAILY 08/23/17 [History] Pravastatin Sodium [Pravachol] 40 mg PO QPM 08/23/17 [History] glipiZIDE [Glipizide ER] 10 mg PO BID 08/23/17 [History] Aspirin [Lo-Dose Aspirin EC] 81 mg PO DAILY 05/15/18 [History] Metformin HCl [Fortamet] 1,000 mg PO BID 11/25/18 [History] Omeprazole Magnesium [Prilosec Otc] 20 mg PO DAILY 11/25/18 [History] Oxycodone Myristate [Xtampza ER] 13.5 mg PO BID 11/25/18 [History] Metoprolol [Lopressor] 100 mg PO BID #60 tablet 12/01/18 [Rx] OxyCODONE/APAP 10/325 [Percocet 10/325 MG] 1 tab PO Q6HR 12/08/18 [History] Allergy/AdvReac Type Severity Reaction Status Date / Time Erythromycin Base Allergy Hives Verified 12/08/18 09:55 Penicillins [PCN] Allergy Hives Verified 12/08/18 09:55 Sulfa (Sulfonamide Allergy Hives Verified 12/08/18 09:55 Antibiotics) - Assessment and Plan (1) Sepsis Current Visit: Yes Status: Acute The patient had 3 sepsis criteria on admission. Additionally, he reported fevers of 1017 at home. Likely secondary to UTI. Improved. Afebrile overnight. Intermittent tachycardia persists. WBC remains elevated. Blood cultures on 12/07/18 are pending 2 sets. Qualifiers: Sepsis type: sepsis due to unspecified organism Qualified Code(s): A41.9 - Sepsis, unspecified organism SNOMED Code(s): 17917027 (2) UTI (urinary tract infection) Current Visit: Yes Status: Acute Causative organism: Unclear. Likely secondary to recent Lopez catheter postop. The patient reported dark urine with dysuria and fever at home. No evidence of pyelonephritis on exam. Currently on Rocephin. Qualifiers: Urinary tract infection type: acute cystitis Hematuria presence: without hematuria Qualified Code(s): N30.00 - Acute cystitis without hematuria SNOMED Code(s): 58199692 (3) Elevated troponin Current Visit: Yes Status: Acute SNOMED Code(s): 908517507, 686584481, 355229414 (4) Coronary artery disease Current Visit: No Status: Acute Status post coronary artery bypass grafting 3 with the left internal mammary artery to the LAD and saphenous vein grafts to the right coronary artery and obtuse marginal branch of the circumflex coronary artery 11/25/[address] Zamarripa. Qualifiers: Associated angina: angina presence unspecified Qualified Code(s): I25.10 - Atherosclerotic heart disease of [place] coronary artery without angina pectoris SNOMED Code(s): 16868150 (5) Diabetes mellitus, insulin dependent (IDDM), controlled Current Visit: Yes Status: Acute Recommend aggressive glucose monitoring and control to promote wound healing and prevent re-infection. Management per the primary team. SNOMED Code(s): 19802681, 220578029 (6) Allergy to multiple antibiotics Current Visit: Yes Status: Acute States had an unknown reaction to PCN, sulfa, and erythromycin when he was a baby. SNOMED Code(s): 842853569442423 - Recommendations Recommendations: Await urine culture to finalize. Await blood cultures to finalize. Continue Rocephin 1 g IV daily. Duration of treatment depends on the clinical picture. Monitor renal function and is just antibiotics. Past Med Surg Social Fam HX - Past Medical History Attestation: Yes The following information was validated with the patient. Source: patient, old records reviewed, nursing notes reviewed Medical history: diabetes, hyperlipidemia Additional medical history: lumbar stenosis. 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 I have reviewed and agree with the care plan. History and Exam by me shows: Assessment and plan: 1.Sepsis 2.Urinary tract infection causative organism not clear gram-negative rods 3.Coronary artery disease recent CABG 4.Diabetes mellitus type 2 controlled Recommendations Await urine culture to finalize. Await blood cultures to finalize. Continue Rocephin 1 g IV daily. Duration of treatment depends on the clinical picture. Monitor renal function and is just antibiotics.
[2018-12-08] MEDS: *HR* OxyCODONE ER (12 HR) 10 MG TABLET PO SCH (19:58)
[2018-12-09 06:23] LABS: Hematocrit 27.4 % (37.5-50.1); Hemoglobin 8.9 g/dL (12.9-16.9); Mean Corpuscular HGB Conc 32.5 g/dL (31.6-35.5); Mean Corpuscular Hemoglobin 31.9 pg (28.0-33.3); Mean Corpuscular Volume 98.2 fL (83.0-100.0); Mean Platelet Volume 9.3 fL (9.4-12.4); Platelet Count 477 K/mcL (140-400); Red Blood Count 2.79 M/mcL (4.19-5.50); Red Cell Distribution Width 12.5 % (11.5-14.5); White Blood Count 21.5 K/mcL (4.3-11.1)
[2018-12-09] MEDS: *HR* Heparin 5,000 UNIT/ML VIAL SQ SCH ×3 (06:43→20:13)
[2018-12-09] MEDS: *HR* OxyCODONE ER (12 HR) 10 MG TABLET PO SCH ×2 (08:35→20:13)
[2018-12-09] MEDS: cefTRIAXone 1,000 MG in Water for inj. (sterile) 10 ML IVP SCH (08:35)
[2018-12-09] MEDS: Aspirin Enteric Coated 81 MG Tablet PO SCH (08:35)
[2018-12-09] MEDS ORDERED: Dextrose Gel 15 GM/37.5 ML TUBE PO PRN ×2 (09:20)
[2018-12-09] MEDS ORDERED: *HR* Dextrose 50 % in Water (Syg) 50 ML SYRINGE IVP PRN (09:20)
[2018-12-09] MEDS ORDERED: D5% in Water 1,000 ML IVC PRN (09:20)
--- NOTE | 2018-12-09 09:52 | Infectious Disease Progress No ---
ID Progress Note Date of Encounter: 12/09/18 Time of Encounter: 09:50 - Subjective Subjective: Patient seen and examined. No acute events noted overnight. Patient sitting up in the bedside chair. States overall he feels better. Denies fevers, chills, or rigors. Denies chest pain, shortness of breath, or cough. Denies nausea, vomiting, diarrhea, or constipation. Denies abdominal pain. States dysuria persists, but is improved. Continues to report urinary urgency. Denies back or flank pain. Denies oral thrush or skin rashes. States myalgias are markedly improved. - Objective CBC & Chem 7: 12/09/18 04:46 12/08/18 04:02 - Exam Vitals: Temp Pulse Resp BP Pulse Ox 98.7 F 114 18 117/77 95 12/09/18 07:14 12/09/18 07:14 12/09/18 07:14 12/09/18 07:14 12/09/18 07:14 Exam: Head: Atraumatic, normal inspection, normocephalic. Eye: EOMI, PERRLA, no scleral icterus noted. ENT: Mucous membranes moist. No odontogenic infection noted. Neck: Normal inspection, no meningismus. Respiratory: Clear to auscultation. No rales, respiratory distress, rhonchi, or wheezes noted. Cardiovascular: Regular rhythm, tachycardic. S1 and S2 audible. No murmurs, rubs, or gallops. GI: Soft, nondistended, normal bowel sounds. Extremities: No joint swelling, pedal edema, or tenderness noted. Vein harvesting sites open to air without erythema. Well healed. No drainage. Back: Normal inspection. No vertebral tenderness noted. No CVA tenderness noted. Neurological: Alert, oriented 3, no focal deficits. Psychiatric: normal affect, normal mood. Skin: Dry, intact, warm. Normal color. No rashes. Midsternal incision open to air with Steri-Strips intact. No erythema, warmth, tenderness, or drainage noted. Chest tube sites without abnormality. - Assessment and Plan (1) Sepsis Current Visit: Yes Status: Acute The patient had 3 sepsis criteria on admission. Additionally, he reported fevers of 101.7 at home. Likely secondary to UTI. Improved. Afebrile overnight. Tachycardia persists. WBC trending down. Blood cultures on 12/07/18 are no growth to date 2 sets. Qualifiers: Sepsis type: sepsis due to unspecified organism Qualified Code(s): A41.9 - Sepsis, unspecified organism SNOMED Code(s): 28885303 (2) UTI (urinary tract infection) Current Visit: Yes Status: Acute Causative organism: Unclear. Urine culture is positive for gram-negative rods. Final ID and sensitivities are pending. Likely secondary to recent Lopez catheter postop. The patient reported dark urine with dysuria and fever at home. No evidence of pyelonephritis on exam. Currently on Rocephin. Qualifiers: Urinary tract infection type: acute cystitis Hematuria presence: without hematuria Qualified Code(s): N30.00 - Acute cystitis without hematuria SNOMED Code(s): 18564312 (3) Elevated troponin Current Visit: Yes Status: Acute SNOMED Code(s): 345787806, 174452902, 311973150 (4) Coronary artery disease Current Visit: No Status: Acute Status post coronary artery bypass grafting 3 with the left internal mammary artery to the LAD and saphenous vein grafts to the right coronary artery and obtuse marginal branch of the circumflex coronary artery 11/25/[address] Zamarripa. Qualifiers: Associated angina: angina presence unspecified Qualified Code(s): I25.10 - Atherosclerotic heart disease of [place] coronary artery without angina pectoris SNOMED Code(s): 36269681 (5) Diabetes mellitus, insulin dependent (IDDM), controlled Current Visit: Yes Status: Acute Recommend aggressive glucose monitoring and control to promote wound healing and prevent re-infection. Management per the primary team. SNOMED Code(s): 70806298, 267909110 (6) Allergy to multiple antibiotics Current Visit: Yes Status: Acute States had an unknown reaction to PCN, sulfa, and erythromycin when he was a baby. SNOMED Code(s): 037306724682700 - Recommendations Recommendations: Await urine culture to finalize. Await blood cultures to finalize. Continue Rocephin 1 g IV daily. Duration of treatment depends on the clinical picture. Monitor renal function and is just antibiotics. Consult Discharge Plan - Plan Referrals: Bushra Burdick CNP [Advanced Practice Nurse] - 12/15/18 10:00 am - Attending Attestation I have personally performed a face to face evaluation on this patient. I have reviewed and agree with the care plan. History and Exam by me shows: Assessment and plan: 1.Sepsis 2.Urinary tract infection causative organism not clear gram-negative rods 3.Coronary artery disease recent CABG 4.Diabetes mellitus type 2 controlled Recommendations Await urine culture to finalize. Await blood cultures to finalize. Continue Rocephin 1 g IV daily. Duration of treatment depends on the clinical picture. Monitor renal function and is just antibiotics.
--- NOTE | 2018-12-09 09:59 | Internal Med Progress Note ---
Hospitalist Progress Note - Encounter Date of Encounter: 12/09/18 Time of Encounter: 08:00 - Subjective Interval History: Patient was seen and examined at bedside. Denies any fever or chills or overnight events. Denies chest pain or palpitations. Reports that his dysuria and frequency has improved greatly since admission. Denies hematuria. All questions answered. Tolerating by mouth diet. Pain is controlled. - Exam Vitals: Temp Pulse Resp BP Pulse Ox 98.7 F 114 18 117/77 95 12/09/18 07:14 12/09/18 07:14 12/09/18 07:14 12/09/18 07:14 12/09/18 07:14 Exam: General: Patient is alert, oriented, no acute distress, speaks in full sentences. Head: atraumatic, normocephalic, Eye: normal appearance, PERRL, no scleral icterus, no conjunctival injection ENT: mucous membranes moist, normal external ear exam Neck: normal inspection, trachea midline, full ROM, no carotid bruits Chest: normal inspection, symmetric chest rise, CABG scar is well healed, no d ischage or bleeding, has minimal ecchymosis on the chest from operation. Respiratory: Good respiratory effort. Bilateral breath sounds are clear without wheezing, crackles, or rhonchi. Cardiovascular: tachycardic s1 and s2 No clicks, rubs, gallops, or murmors. Abdomen: Bowel sounds present normoactive x-4 quadrants. Abdomen is soft, nondistended. no Epigastric tenderness. No guarding or rebound. No organomegaly noted musculoskeletal: Spontaneously moving all extremities. no edema, no calf tenderness Skin: warm, dry, intact. Neuro: Alert and oriented x3, no focal deficit Psych: Patient's affect is normal - Assessment and Plan (1) Complicated UTI (urinary tract infection) Current Visit: Yes Status: Acute Assessment and Plan: Patient presenting with symptoms of increased frequency, dysuria and dark colored urine for the past 2 days. UA positive- urine cx with gram negative carol Continue antibiotics with IV ceftriaxone ID on board (2) Sepsis Current Visit: Yes Status: Acute Assessment and Plan: Patient presenting with fever, tachycardia and leukocytosis with UA positive for gram negative rods Lactic acid within normal limits. Continue IV antibiotics Continue fluid support- watch for overload Follow-up urine and blood cultures. (3) Elevated troponin Current Visit: Yes Status: Acute Assessment and Plan: Patient presenting with an elevated troponin of 0.05. Patient is reporting some chest pain however it appears pleuritic in nature which may be suspected after recent bypass surgery. EKG showed normal sinus rhythm with T-wave inversions noted in leads 1, aVL, V2. Patient's troponin and EKG changes may be postoperative changes associated with recent CABG in addition to sepsis and supply vs demand mismatch troponin has trended flat. Continue patient on aspirin, statin and beta caity night team had discussed EKG findings with programmer analyst consultant outreach analyst. discussed case ( elevated troponin) with Dr. colvin who recommended Op follow up with Dr. Zamarripa and that its most likely related to post CABG . CXR: IMPRESSION: Areas of atelectasis in both lungs. (4) Coronary artery disease Current Visit: No Status: Acute Assessment and Plan: History [place] [id number]. Patient reporting some chest pain which is pleuritic in nature. Otherwise states he has been having an uneventful recovery after surgery. Continue aspirin, statin, beta caity (5) Diabetes mellitus, insulin dependent (IDDM), controlled Current Visit: Yes Status: Acute Assessment and Plan: History of [id number] type 2 diabetes. insulin sliding scale adjust as per fingersticks (6) DVT prophylaxis Current Visit: Yes Status: Acute Assessment and Plan: heparin sc - Time Spent with Patient Total time spent is greater than 50% in coordination of care (as documented) at patient's floor/unit and/or counseling patient: 25 - 35 minutes Internal Medicine: Result - Labs CBC & Chem 7: 12/09/18 04:46 12/08/18 04:02 Labs: Short CBC 12/09/18 Range/Units 04:46 WBC 21.5 H (4.3-11.1) K/mcL Hgb 8.9 L (12.9-16.9) g/dL Hct 27.4 L (37.5-50.1) % Plt Count 477 H (140-400) K/mcL Urine 12/07/18 Range/Units 19:45 Urine Color Yellow (Yellow) Urine Clarity Cloudy A (Clear) Urine pH 7.0 (5.0-8.0) pH Units Ur Specific [place] < 1.005 L (1.010-1.025) Urine Protein 30 H (Neg-Trace) mg/dL Urine Glucose (UA) Normal (Normal) mg/dL - ABG Interpretation ABG results: PT/INR, D-dimer PT 13.0 Seconds (9.4-12.1) H 12/07/18 20:05 Consult Discharge Plan - Plan Referrals: Gutierrez Shrestha DO [Primary Care Provider] - (sent web request on 12-08-18 @ [phone]) __ (2) Sepsis Qualifiers: Sepsis type: sepsis due to unspecified organism Qualified Code(s): A41.9 - Sepsis, unspecified organism (4) Coronary artery disease Qualifiers: Associated angina: angina presence unspecified Qualified Code(s): I25.10 - Atherosclerotic heart disease of [place] coronary artery without angina pectoris
[2018-12-09] MEDS: Insulin LISPRO 300 UNITS/3 ML VIAL SQ SCH ×2 (11:37→17:28)
--- NOTE | 2018-12-09 16:16 | Event Note ---
Date of Encounter: 12/09/18 Time of Encounter: 15:49 I saw the patient at the request of the his hospitalist. Briefly, the patient is a 53-year-old type II diabetic man with known CAD who underwent CABG [address] Jonathan Zamarripa on 11/25/2017. I was called by the patient's on 12/07/2018, she stated that the patient had been experiencing dysuria and frequency since his discharge. On Saturday, the patient had become somewhat somnolent and stated that his whole body ached. He was told to seek evaluation at [facility] [place] emergency department. He was admitted with diagnosis of a UTI. The urine culture shows a gram-negative carol, but no final ID has been made at this time. On examination the patient's has regular rate and rhythm and no murmur is heard. His lungs are clear to auscultation bilaterally. His sternotomy incision is healing well. The sternum is stable to both deep breathing and coughing. There is no sternal discharge. The patient is on appropriate antibiotics and states that he is feeling better. Once the final urine culture ID has been established, his therapy can be converted to an appropriate oral antibiotic and the patient may be discharged home. He is scheduled to see Dr. Jonathan Zamarripa in the office on 11/25/2018.
[2018-12-09] MEDS ORDERED: Insulin LISPRO 300 UNITS/3 ML VIAL SQ SCH (21:00)
[2018-12-10] MEDS: *HR* Heparin 5,000 UNIT/ML VIAL SQ SCH (06:32)
[2018-12-10 07:10] LABS: Hematocrit 28.2 % (37.5-50.1); Hemoglobin 9.1 g/dL (12.9-16.9); Mean Corpuscular HGB Conc 32.3 g/dL (31.6-35.5); Mean Corpuscular Hemoglobin 31.3 pg (28.0-33.3); Mean Corpuscular Volume 96.9 fL (83.0-100.0); Mean Platelet Volume 9.2 fL (9.4-12.4); Platelet Count 518 K/mcL (140-400); Red Blood Count 2.91 M/mcL (4.19-5.50); Red Cell Distribution Width 12.4 % (11.5-14.5)
[2018-12-10 07:12] VITALS: BP 111/70
[2018-12-10 07:13] LABS: White Blood Count 8.8 K/mcL (4.3-11.1)
[2018-12-10] MEDS: Aspirin Enteric Coated 81 MG Tablet PO SCH (07:37)
[2018-12-10] MEDS: cefTRIAXone 1,000 MG in Water for inj. (sterile) 10 ML IVP SCH (07:37)
[2018-12-10] MEDS: *HR* OxyCODONE ER (12 HR) 10 MG TABLET PO SCH (07:37)
[2018-12-10] MEDS: Insulin LISPRO 300 UNITS/3 ML VIAL SQ SCH (07:39)
--- NOTE | 2018-12-10 10:32 | Infectious Disease Progress No ---
ID Progress Note Date of Encounter: 12/10/18 Time of Encounter: 10:32 - Subjective Subjective: Patient seen and examined. No acute events noted overnight. States overall he feels better. Denies fevers, chills, or rigors. Denies chest pain, shortness of breath, or cough. Denies nausea, vomiting, diarrhea, or constipation. Denies abdominal pain. States dysuria is improved and minimal at this point. Continues to report urinary urgency, but better. Denies back or flank pain. Denies oral thrush or skin rashes. States myalgias are markedly improved. - Objective CBC & Chem 7: 12/10/18 06:16 12/08/18 04:02 - Exam Vitals: Temp Pulse Resp BP Pulse Ox 98.2 F 91 18 111/70 98 12/10/18 07:09 12/10/18 08:35 12/10/18 07:09 12/10/18 07:09 12/10/18 04:12 Exam: Head: Atraumatic, normal inspection, normocephalic. Eye: EOMI, PERRLA, no scleral icterus noted. ENT: Mucous membranes moist. No odontogenic infection noted. Neck: Normal inspection, no meningismus. Respiratory: Clear to auscultation. No rales, respiratory distress, rhonchi, or wheezes noted. Cardiovascular: Regular rhythm, tachycardic. S1 and S2 audible. No murmurs, rubs, or gallops. GI: Soft, nondistended, normal bowel sounds. Extremities: No joint swelling, pedal edema, or tenderness noted. Vein harvesting sites open to air without erythema. Well healed. No drainage. Back: Normal inspection. No vertebral tenderness noted. No CVA tenderness noted. Neurological: Alert, oriented 3, no focal deficits. Psychiatric: normal affect, normal mood. Skin: Dry, intact, warm. Normal color. No rashes. Midsternal incision open to air with Steri-Strips intact. No erythema, warmth, tenderness, or drainage noted. Chest tube sites without abnormality. - Assessment and Plan (1) Sepsis Current Visit: Yes Status: Acute The patient had 3 sepsis criteria on admission. Additionally, he reported fevers of 101.7 at home. Likely secondary to UTI. Improved. Afebrile overnight. Tachycardia resolved. WBC normal. Blood cultures on 12/07/18 are no growth to date 2 sets. Qualifiers: Sepsis type: sepsis due to unspecified organism Qualified Code(s): A41.9 - Sepsis, unspecified organism SNOMED Code(s): 19737719 (2) UTI (urinary tract infection) Current Visit: Yes Status: Acute Causative organism: flores-sensitive E. coli. Likely secondary to recent Lopez catheter postop. The patient reported dark urine with dysuria and fever at home. No evidence of pyelonephritis on exam. Currently on Rocephin. Qualifiers: Urinary tract infection type: acute cystitis Hematuria presence: without hematuria Qualified Code(s): N30.00 - Acute cystitis without hematuria SNOMED Code(s): 74668003 (3) Elevated troponin Current Visit: Yes Status: Acute SNOMED Code(s): 329129705, 026908382, 859306045 (4) Coronary artery disease Current Visit: No Status: Acute Status post coronary artery bypass grafting 3 with the left internal mammary artery to the LAD and saphenous vein grafts to the right coronary artery and obtuse marginal branch of the circumflex coronary artery 11/25/[address] Zamarripa. Qualifiers: Associated angina: angina presence unspecified Qualified Code(s): I25.10 - Atherosclerotic heart disease of [place] coronary artery without angina pectoris SNOMED Code(s): 36855021 (5) Diabetes mellitus, insulin dependent (IDDM), controlled Current Visit: Yes Status: Acute Recommend aggressive glucose monitoring and control to promote wound healing and prevent re-infection. Management per the primary team. SNOMED Code(s): 84523339, 180236153 (6) Allergy to multiple antibiotics Current Visit: Yes Status: Acute States had an unknown reaction to PCN, sulfa, and erythromycin when he was a baby. Tolerating Rocephin well. SNOMED Code(s): 774520563278529 - Recommendations Recommendations: Await blood cultures to finalize. Continue Rocephin 1 g IV daily. Duration of treatment depends on the clinical picture. Can transition to Omnicef 300mg PO BID to complete a 7 day course. Treat through 12/13/18. Monitor renal function and dose-adjust antibiotics. Consult Discharge Plan - Plan Referrals: Bushra Burdick CNP [Advanced Practice Nurse] - 12/15/18 10:00 am
--- NOTE | 2018-12-10 10:41 | Discharge Summary ---
- NOTES TO OUTPATIENT PROVIDER Notes to Outpatient Provider: nguyenw up with Orders not resulted at time of discharge: Pending orders 12/07/18 20:05 Culture,Blood [] Stat Date of Encounter: 12/10/18 Time of Encounter: 10:37 - Discharge Diagnosis (1) Complicated UTI (urinary tract infection) Priority: Primary Status: Acute (2) Sepsis Priority: Secondary Status: Acute Qualifiers: Sepsis type: sepsis due to unspecified organism Qualified Code(s): A41.9 - Sepsis, unspecified organism (3) Elevated troponin Priority: Secondary Status: Acute (4) Coronary artery disease Priority: Secondary Status: Acute Qualifiers: Coronary Disease-Associated Artery/Lesion type: [place] artery [place] vs. transplanted heart: [place] heart Associated angina: angina presence unspecified Qualified Code(s): I25.10 - Atherosclerotic heart disease of [place] coronary artery without angina pectoris (5) Diabetes mellitus, insulin dependent (IDDM), controlled Priority: Secondary Status: Acute (6) DVT prophylaxis Priority: Secondary Status: Acute Hospital course: "Mr. Quintanilla is a 53 year old male with a past medical history of diabetes, hyperlipidemia, coronary artery disease status post recent CABG 12 days ago and recently discharged on Saturday who presented to the ED with a 2 day history of dysuria with increased frequency and dark colored urine. Patient patient reporting that he recently had his Lopez catheter removed. Patient has noted fevers of up to 101.7 as well as chills. On arrival found to be hemodynamically stable with a heart rate of 116. 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 Laboratory workup for a leukocytosis of 24.8, anemia which appears to be stable, and a troponin of 0.05. UA showing positive nitrites and leukocyte esterase. A she was given 1 L of fluids in the ED. Blood and urine cultures were obtained. Patient was started on ceftriaxone. We will admit for UTI with sepsis." Patient presented with above presentation and had above ED course. He was started on IV antibiotics and blood cultures and urine cultures were sent. Infectious disease was consulted. Urine cultures grew pansensitive Escherichia coli and it was recommended for him to be switched to oral medications and to continue course until 12/13. His symptoms greatly improved. He remained afebrile and white blood cell count trended down from 24.8-8.8. Cardiothoracic surgery was consulted and was recommended for him to follow with Dr. Zamarripa in the office on 11/25/2018. Discharge discussed with: patient, family, nurse, social work, case management, strategic consultant - Time Spent with Patient Total time spent providing and/or coordinating discharge services: Time spent: Greater than 30 minutes (35) - Discharge Medications Prescriptions: New Cefdinir [Omnicef] 300 mg PO BID 8 Days capsule Continued Pioglitazone HCl [Actos] 30 mg PO DAILY glipiZIDE [Glipizide ER] 10 mg PO BID Dulaglutide [Trulicity] 0.75 mg SQ WE Pravastatin Sodium [Pravachol] 40 mg PO QPM Aspirin [Lo-Dose Aspirin EC] 81 mg PO DAILY Metformin HCl [Fortamet] 1,000 mg PO BID Omeprazole Magnesium [Prilosec Otc] 20 mg PO DAILY Oxycodone Myristate [Xtampza ER] 13.5 mg PO BID Metoprolol [Lopressor] 100 mg PO BID #60 tablet OxyCODONE/APAP 10/325 [Percocet 10/325 MG] 1 tab PO Q6HR Home Medications: Dulaglutide [Trulicity] 0.75 mg SQ WE 08/23/17 [History] Pioglitazone HCl [Actos] 30 mg PO DAILY 08/23/17 [History] Pravastatin Sodium [Pravachol] 40 mg PO QPM 08/23/17 [History] glipiZIDE [Glipizide ER] 10 mg PO BID 08/23/17 [History] Aspirin [Lo-Dose Aspirin EC] 81 mg PO DAILY 05/15/18 [History] Metformin HCl [Fortamet] 1,000 mg PO BID 11/25/18 [History] Omeprazole Magnesium [Prilosec Otc] 20 mg PO DAILY 11/25/18 [History] Oxycodone Myristate [Xtampza ER] 13.5 mg PO BID 11/25/18 [History] Metoprolol [Lopressor] 100 mg PO BID #60 tablet 12/01/18 [Rx] OxyCODONE/APAP 10/325 [Percocet 10/325 MG] 1 tab PO Q6HR 12/08/18 [History] Cefdinir [Omnicef] 300 mg PO BID 8 Days capsule 12/10/18 [Rx] Allergies/Adverse Reactions: Allergy/AdvReac Type Severity Reaction Status Date / Time Erythromycin Base Allergy Hives Verified 12/08/18 09:55 Penicillins [PCN] Allergy Hives Verified 12/08/18 09:55 Sulfa (Sulfonamide Allergy Hives Verified 12/08/18 09:55 Antibiotics) Date of admission: 12/07/18 22:11 Primary care physician: Gutierrez Shrestha DO Consults: 12/08/18 09:12 Consult to Infectious Diseases [CONS] Routine Consulting Provider: Infectious Disease [place] Reason for Consult: sepsis secondary to complicated UTI Call Completed: No - Constitutional Vitals: Temp Pulse Resp BP Pulse Ox 98.2 F 91 18 111/70 98 12/10/18 07:09 12/10/18 08:35 12/10/18 07:09 12/10/18 07:09 12/10/18 04:12 Exam: General: Patient is alert, oriented, no acute distress, speaks in full sentences. Head: atraumatic, normocephalic, Eye: normal appearance, PERRL, no scleral icterus, no conjunctival injection ENT: mucous membranes moist, normal external ear exam Neck: normal inspection, trachea midline, full ROM, no carotid bruits Chest: normal inspection, symmetric chest rise, CABG scar is well healed, no dischage or bleeding, has minimal ecchymosis on the chest from operation. Respiratory: Good respiratory effort. Bilateral breath sounds are clear without wheezing, crackles, or rhonchi. Cardiovascular: tachycardic s1 and s2 No clicks, rubs, gallops, or murmors. Abdomen: Bowel sounds present normoactive x-4 quadrants. Abdomen is soft, nondistended. no Epigastric tenderness. No guarding or rebound. No orga nomegaly noted musculoskeletal: Spontaneously moving all extremities. no edema, no calf tenderness Skin: warm, dry, intact. Neuro: Alert and oriented x3, no focal deficit Psych: Patient's affect is normal - Patient Status Disposition: Home, Self-Care Condition: Fair Functional capacity at discharge: independent ambulation Overall status at discharge: patient is progressing back to baseline - Discharge Instructions Follow Up With: Bushra Burdick CNP [Advanced Practice Nurse] - 12/15/18 10:00 am Forms: ED Satisfaction Letter - Diet and Activity Activity: as per physical therapy Diet: low salt diet
[2018-12-13] MEDS ORDERED: (Dulaglutide [Trulicity] 0.75 MG) SQ SCH (22:06)
== END 2018-12-10 12:14 | disposition home or self-care (01) ==
LOC: 2NNU 19:35 → EMEROOARM 19:35 → SUATTDRO 22:11 → 2NNU 22:57
PROVIDERS: ADMIT Internal Medicine; ATTEND Internal Medicine